=== PATIENT | male | born 1985 | race Asian ===

== ENCOUNTER 2020-02-14 13:34 | Emergency (ER) | payer OTHER ==
[2020-02-14 13:43] VITALS: BP 138/94; PULSE 71; BMI 26.0
[2020-02-14] MEDS ORDERED: DIPHTH,PERTUSS(ACELL),TET 0.5 ML DISP.SYRIN IM ONE ×2 (14:46→14:51)
--- NOTE | 2020-02-14 15:45 | PDOC ---
History of Present Illness - General Chief Complaint: Laceration Stated Complaint: R/ARM INJURY Time Seen by Provider: 02/14/20 14:18 History Source: Patient Exam Limitations: Clinical Condition - History of Present Illness Initial Comments: 02/14/20 15:46 Patient with no significant past medical history present with complaint of laceration to left index and middle finger status post accidentally cutting finger with a knife over an hour prior to arrival. Denies difficulty moving, numbness or tingling sensation to fingers. Patient reported last tetanus vaccine over 10 years ago. Denies any other symptoms Timing/Duration: reports: just prior to arrival Past History - Medical History Allergies/Adverse Reactions: Allergies Allergy/AdvReac Type Severity Reaction Status Date / Time No Known Allergies Allergy Verified 02/14/20 13:40 Home Medications: Ambulatory Orders Amox-Tr/K Cl [Augmentin - 875Mg Tablet] 1 tab PO BID #14 tablet 02/14/20 Ibuprofen 600 mg PO Q8H PRN #16 tablet 02/14/20 COPD: No - Immunization History Immunization Up to Date: No - Psycho-Social/Smoking History Smoking Status: No Smoking History: Never smoked Number of Cigarettes Smoked Daily: 0 - Substance Abuse Hx (Audit-C & DAST Scrn) How often the patient has a drink containing alcohol: Monthly or less Score: In Men: 4 or > Positive; In Women: 3 or > Positive: 1 Screen Result (Pos requires Nsg. Audit-10AR): Negative In the last yr the pt used illegal drug/Rx for NonMed reason: No Score: Yes response is considered Positive: 0 Screen Result (Positive result requires Nsg. DAST-10): Negative Review of Systems - Review of Systems Able to Perform ROS?: Yes Is the patient limited Filipino proficient: No Constitutional: No: Chills, Fever, Malaise HEENTM: No: Symptoms Reported, See HPI, Eye Pain, Blurred Vision, Tearing, Recent change in vision, Double Vision, Cataracts, Ear Pain, Ocular Prothesis, Ear Discharge, Nose Pain, Nose Congestion, Tinnitus, Nose Bleeding, Hearing Loss, Throat Pain, Throat Swelling, Mouth Pain, Dental Problems, Difficulty Swallowing, Mouth Swelling, Other Respiratory: No: Symptoms reported, See HPI, Cough, Orthopnea, Shortness of Breath, SOB with Exertion, SOB at Rest, Stridor, Wheezing, Productive cough, Hemoptysis, Other Cardiac (ROS): No: Symptoms Reported, See HPI, Chest Pain, Edema, Irregular Heart Rate, Lightheadedness, Palpitations, Syncope, Chest Tightness, Other ABD/GI: No: Symptoms Reported Musculoskeletal: Yes: Symptoms Reported, See HPI, Muscle Pain (right index and middle finger) Integumentary: Yes: Symptoms Reported, See HPI, Other (laceration to right index and middle finger) Neurological: No: Numbness, Paresthesia, Tingling All Other Systems: Reviewed and Negative *Physical Exam - Vital Signs Last Vital Signs Temp Pulse Resp BP Pulse Ox 71 20 138/94 100 02/14/20 13:42 02/14/20 13:42 02/14/20 13:42 02/14/20 13:42 - Physical Exam 02/14/20 15:51 GENERAL: Well developed, well nourished. Awake and alert. No acute distress. PULMONARY: No evidence of respiratory distress. MUSCULOSKELETAL : 3 cm semilunar laceration to middle phalange of right index finger with another 1 cm 90 degree laceration to plantar aspect of middle phalange of right middle finger with moderate bleeding. Full range of motion of fingers. 5 out of 5 strength to both fingers. No bony deformities SKIN: Warm and dry. Normal capillary refill. 3 cm semilunar laceration to middle phalange of right index finger with another 1 cm 90 degree laceration to plantar aspect of middle phalange of right middle finger with moderate bleeding. NEUROLOGICAL: Alert, awake, appropriate. No motor deficits in the lower extremities. Gait is normal without ataxia. PSYCHIATRIC: Cooperative. Good eye contact. Appropriate mood and affect. General Appearance: Yes: Nourished, Appropriately Dressed. No: Apparent Distress Procedures - Laceration/Wound Repair Right Anterior Finger 2nd digit Wound Length: 2.6 to 5.0 cm Wound Explored: clean Wound's Depth, Shape: superficial, linear, flap Irrigated w/ Saline: Yes Betadine Prep: Yes Anesthesia: 1% Lidocaine Amount of Anesthetic (ccs): 2 Wound Repaired With: Sutures Suture Size/Type: 4:0, nylon Number of Sutures: 5 Layer Closure: No Sterile Dressing Applied: Yes Splint Applied: No Sling Applied: No Right Anterior Finger 3rd digit Wound Length: to 2.5 cm Wound Explored: clean Wound's Depth, Shape: superficial, linear, irregular Irrigated w/ Saline: Yes Betadine Prep: Yes Anesthesia: 1% Lidocaine Amount of Anesthetic (ccs): 1 Wound Repaired With: Sutures Suture Size/Type: 4:0, nylon Number of Sutures: 2 Sterile Dressing Applied: Yes Splint Applied: No Sling Applied: No Progress: 02/14/20 15:55 Wound cleaned with Betadine and infiltrated with 1% lidocaine. Laceration to right index finger closed with 5 interrupted 4-0 nylon sutures with good approximation and good hemostasis achieved. Laceration to right middle finger c losed with 2 interrupted 4 nylon sutures with good anesthetic and close approximation. Tetanus vaccine given by nurse. Patient tolerated procedure well ED Treatment Course - RADIOLOGY Radiology Studies Ordered: Category Date Time Status FINGER(S) RIGHT [RAD] Stat Radiology 02/14/20 14:39 Ordered HAND- RIGHT [RAD] Stat Radiology 02/14/20 14:43 Ordered - Medications Given in the ED: ED Medications Discontinued Medications Generic Name Dose Route Start Last Admin Trade Name Freq PRN Reason Stop Dose Admin Diphtheria/Tetanus/Acell Pertussis 0.5 ml 02/14/20 14:46 02/14/20 15:15 Boostrix - IM 02/14/20 14:47 0.5 ml .ONCE ONE Administration Medical Decision Making - Medical Decision Making 02/14/20 15:47 Patient with no significant past medical history present with complaint of laceration to right index and middle finger status post accidentally cutting finger with a knife over an hour prior to arrival. Denies difficulty moving, numbness or tingling sensation to fingers. Patient reported last tetanus vaccine over 10 years ago. Denies any other symptoms Exam significant for 3 cm semilunar laceration to middle phalange of right index finger with another 1 cm 90 degree laceration to plantar aspect of middle phalange of right middle finger with moderate bleeding. Full range of motion of fingers. 5 out of 5 strength to both fingers. Patient started complaining of lightheadedness after wound was exposed and bleeding and patient almost had a vasovagal reaction which lasted for 2 minutes and patient reported feeling better after that. Wound cleaned with Betadine and infiltrated with 1% lidocaine. Laceration to right index finger closed with 5 interrupted 4-0 nylon sutures with good approximation and good hemostasis achieved. Laceration to right middle finger closed with 2 interrupted 4 nylon sutures with good anesthetic and close approximation. Tetanus vaccine given by nurse. Patient tolerated procedure well. X-ray of right hand and finger shows no acute fracture or dislocation. Patient stable for discharge Augmentin antibiotic for infection prophylaxis and Motrin PRN for pain with advised on continues home wound care and follow-up in 1 week for suture removal Discharge - Discharge Information Problems reviewed: Yes Clinical Impression/Diagnosis: Laceration of right middle finger w/o foreign body w/o damage to nail Qualifiers: Encounter type: initial encounter Qualified Code(s): S61.212A - Laceration with out foreign body of right middle finger without damage to nail, initial encounter Laceration of right index finger w/o foreign body w/o damage to nail Qualifiers: Encounter type: initial encounter Qualified Code(s): S61.210A - Laceration without foreign body of right index finger without damage to nail, initial encounter Condition: Improved Disposition: HOME - Admission No - Additional Discharge Information Prescriptions: Amox-Tr/K Cl [Augmentin - 875Mg Tablet] 1 tab PO BID #14 tablet Ibuprofen 600 mg PO Q8H PRN #16 tablet PRN Reason: pain - Follow up/Referral Referrals: Jimbo Levy MD [Primary Care Provider] - - Patient Discharge Instructions Patient Printed Discharge Instructions: DI for Laceration Repair Additional Instructions: Keep wound clean and dry for the next 24 hours. Apply bacitracin or Neosporin to wound twice a day. Take prescribed antibiotics and finish and take pre scribed Motrin as needed for pain. Follow-up in 1 week for suture removal - Post Discharge Activity
== END 2020-02-14 15:55 | disposition home or self-care (01) ==
LOC: JERFT 13:34
PROC: 0HQFXZZ Repair Right Hand Skin, External Approach (ICD-10-PCS; principal; 2020-02-14)
PROC: 3E0234Z Introduction of Serum, Toxoid and Vaccine into Muscle, Percutaneous Approach (ICD-10-PCS; 2020-02-14)
DX: S61.212A Laceration without foreign body of right middle finger without damage to nail, initial encounter (principal); S61.210A Laceration without foreign body of right index finger without damage to nail, initial encounter
CPT/HCPCS: 73130-TC-RT-FY; 73140-TC-RT-FY; 90715; 99284-25

== ENCOUNTER 2022-10-26 17:20 | Emergency (ER) | payer OTHER ==
[2022-10-26 18:06] VITALS: BP 130/96; PULSE 66; RESP 18; TEMP 98.9; BMI 25.7
[2022-10-26 18:06] LABS: HEMATOCRIT 45.8 % (35.4-49); HEMOGLOBIN 15.3 G/dL (11.7-16.9); MCH 29.7 pg (25.7-33.7); MCHC 33.4 g/dl (32.0-35.9); MEAN PLT VOLUME 8.1 fl (7.5-11.1); PLATELET COUNT 264.1 10^3/uL (134-434); RBC 5.15 10^6/uL (4.00-5.60); RDW 13.8 % (11.9-15.9)
[2022-10-26 18:19] LABS: ALBUMIN 4.2 g/dl (3.4-5.0); BILIRUBIN,TOTAL 0.9 mg/dl (0.2-1); CALCIUM 9.1 mg/dl (8.5-10); POTASSIUM 4.2 mmol/L (3.5-5.1); TOT PROT 7.2 g/dl (6.4-8.2); URIC ACID 6.8 mg/dl (2.6-7.2)
[2022-10-26 18:21] LABS: PLATELET ESTIMATE ADEQUATE
== END 2022-10-26 19:07 | disposition home or self-care (01) ==
LOC: FER 17:20
DX: M10.9 Gout, unspecified (principal); M79.675 Pain in left toe(s); R22.42 Localized swelling, mass and lump, left lower limb
CPT/HCPCS: 36415; 73660-TC-LT-FY; 80053; 81003; 81015; 84550; 85027; 99284-25

== ENCOUNTER 2023-01-21 10:05 | Emergency (ER) | payer OTHER ==
[2023-01-21 10:23] VITALS: BP 155/96; PULSE 64; RESP 15; TEMP 98.6; BMI 24.7
== END 2023-01-21 10:33 | disposition home or self-care (01) ==
LOC: FER 10:05
DX: R19.7 Diarrhea, unspecified (principal)
CPT/HCPCS: 99282-25